=== PATIENT | male | born 1985 | race Caucasian/White ===

== ENCOUNTER → 2019-06-07 | Outpatient (CLI) | payer BC | LOC: RAD 10:00 | DX: M50.30 Other cervical disc degeneration, unspecified cervical region (principal); M50.221 Other cervical disc displacement at C4-C5 level ==

== ENCOUNTER → 2020-06-19 | Outpatient (CLI) | payer BC ==
[2020-06-19 11:10] LABS: HEMATOCRIT 45.6 % (42.0-52.0); HEMOGLOBIN 15.6 g/dL (13.5-18.0); MEAN PLATELET VOLUME 11.5 fl (7.4-10.4); RED BLOOD COUNT 5.15 M/mm3 (4.20-5.60); RED CELL DISTRIBUTION WIDTH 12.3 % (11.5-14.5); WHITE BLOOD COUNT 8.2 K/mm3 (4.8-10.8)
[2020-06-19 11:17] LABS: POTASSIUM 4.8 mmol/L (3.5-5.1); SODIUM 139 mmol/L (136-145)
[2020-06-19 11:19] LABS: GLUCOSE 93 mg/dL (75-110); TOTAL PROTEIN 7.8 g/dL (6.4-8.3)
[2020-06-19 11:20] LABS: CARBON DIOXIDE 24 mmol/L (22-29)
[2020-06-19 11:21] LABS: TOTAL BILIRUBIN 0.5 mg/dL (0.2-1.2)
[2020-06-19 11:24] LABS: AST-SGOT 30 U/L (5-34)
[2020-06-19 11:26] LABS: ALT/SGPT 60 U/L (0-55)
[2020-06-19 11:38] LABS: TROPONIN-I < 0.03 ng/mL (<0.030)
== END ==
LOC: AMSURD 10:48
PROVIDERS: Nurse Practitioner
DX: R00.2 Palpitations (principal); H53.8 Other visual disturbances

== ENCOUNTER 2021-08-27 22:10 | Emergency (ER) | payer OTHER ==
[~2021-08-27] VITALS: Ht 188 cm; Wt 97.7 kg
[2021-08-27] MEDS ORDERED: ADVAIR DISKUS1 DS1 IH (22:32)
[2021-08-27] MEDS ORDERED: PROVENTIL0.09 MG/A1 IH (22:33)
[2021-08-27] MEDS ORDERED: COZAAR25 M1 PO (22:33)
[2021-08-27] MEDS ORDERED: ATIVAN0.5 MG PO (22:33)
[2021-08-27 23:35] VITALS: BP 123/73
== END 2021-08-27 23:35 | disposition home or self-care (01) ==
LOC: ED 22:10
DX: S61.512A Laceration without foreign body of left wrist, initial encounter (principal); I10 Essential (primary) hypertension; Z23 Encounter for immunization; W26.0XXA Contact with knife, initial encounter
CPT/HCPCS: 90715

== ENCOUNTER → 2022-11-17 | Outpatient (CLI) | payer OTHER ==
[~2022-11-17] MED LIST: ADVAIR DISKUS1 DS1 IH; ATIVAN0.5 MG PO; COZAAR25 M1 PO; PROVENTIL0.09 MG/A1 IH
== END ==
LOC: RAD 10:15
DX: M19.012 Primary osteoarthritis, left shoulder (principal)